=== PATIENT | male | born 1940 | race Caucasian/White ===

== ENCOUNTER 2022-10-18 09:47 | Emergency (ER) | payer OTHER, SELFPAY ==
[2022-10-18 09:56] VITALS: BP 137/80; PULSE 96; RESP 18; TEMP 36.8; O2SAT 94; BMI 28.1
--- NOTE | 2022-10-18 10:28 | XR_ITS ---
WS: [id number] Portable AP upright chest, 10/18/2022 Clinical Data: cough Comparison: None. Findings: There are bilateral patchy opacities in both lower lobes extending to the periphery of the lungs. These opacities probably represent acute pneumonia. The heart is enlarged. No nodules, masses or effusions are seen. The pulmonary vascularity is not increased. There is no pneumothorax. There is an azygos lobe of the wall. The aortic arch and descending thoracic aorta show tortuosity. There is a left shoulder arthroplasty. XR/XR chest 1V portable [id number] Impression: 1. Bilateral patchy lower lobe opacities most consistent with pneumonia. 2. Cardiomegaly and atherosclerosis.
--- NOTE | 2022-10-18 10:43 | W.ED.FEVER ---
HPI - Fever General: Chief Complaint: Fever Stated Complaint: Cough, Weakness, Fever Time Seen by Provider: 10/18/22 10:31 History of Present Illness: Patient is an 82-year-old male comes to the ED with upper respiratory symptoms. Symptoms started approximately a week and a half ago. Patient's had similar symptoms as well right around that time but she has since gotten better. He has had a fever, nasal congestion and drainage and a mostly dry cough. He states that his cough has gotten worse over the past couple days and is occasionally productive with thick green sputum. He had trouble sleeping last night due to coughing so much. Patient endorses feeling fatigue. He had 1 day where he had multiple episodes of diarrhea but that has completely resolved and he has not had any reoccurring episodes. Denies any chest pain, abdominal pain, nausea/vomiting, or bladder symptoms. Associated symptoms: Reports nasal congestion; Deny abdominal pain, flank pain, chills, chest pain, diarrhea, dysuria, headache(s), nausea or vomiting Review of Systems Const: Reports: fever(s) and fatigue; Denies: chills Eyes: Denies: change in vision or eye discomfort ENMT: Reports: nasal discharge and nasal congestion; Denies: throat pain or odynophagia Card: Denies: chest pain, palpitations, edema, swelling of feet/ankles, dyspnea on exertion or orthopnea Resp: Reports: productive cough; Denies: dyspnea or non-productive cough GI: Denies: abdominal pain, nausea, vomiting, diarrhea, constipation or hematochezia : Denies: flank pain, difficulty urinating, dysuria or hematuria Musc: Denies: neck pain, back pain or extremity swelling Skin/Breast: Denies: rash or new lesions Neuro: Denies: headache(s), numbness in extremities or weakness in extremities PFS ED PFSH: Medical History (Updated 10/19/22 @ 08:56 by CODIE Albright) No pertinent family history Surgical History (Updated 10/19/22 @ 08:56 by CODIE Albright) No pertinent past surgical history Physical Exam Const: COMMON NORMALS: patient oriented x3 and alert GENERAL APPEARANCE: cooperative and comfortable HENMT: COMMON NORMALS: normocephalic HEAD & SCALP: normocephalic MOUTH: Normal oral and palatal mucosa present THROAT: posterior oropharynx normal and uvula midline Neck/C-Spine: COMMON NORMALS: supple GENERAL: Yes normal visual inspection Resp: COMMON NORMALS: normal respiratory effort, No retractions, No use of accessory muscles and clear to auscultation bilaterally AUSCULTATION: clear to auscultation bilaterally and crackles Laterality: right (Base of the lung) Cardio: COMMON NORMALS: regular rate, regular rhythm, S1 normal heart sound present, S2 normal heart sound present, No gallops present (Cardio), No clicks present (Cardio), No murmurs present (Cardio) and Peripheral pulses 2+ throughout RATE: regular rate RHYTHM: regular rhythm HEART SOUNDS: S1 normal heart sound present and S2 normal heart sound present PERIPHERAL PULSES: Peripheral pulses 2+ throughout GI: COMMON NORMALS: Normal to inspection, nondistended, normoactive bowel sounds present, Soft to palpation, non-tender and no masses PALPATION: Yes Soft to palpation : COMMON NORMALS: Yes no CVA tenderness BLADDER/KIDNEY EXAM: Yes no CVA tenderness Back/Pelvis: COMMON NORMALS: no CVA tenderness Extremity: COMMON NORMALS: normal to inspection Neuro: COMMON NORMALS: patient oriented x3 SENSORIUM/ORIENTATION: Yes alert GAIT: Yes Normal gait present Skin: GENERAL SKIN EXAM: dry skin Course Vital Signs: Vital signs: Vital Signs Temperature 98.2 F 10/18/22 09:56 Pulse Rate 95 10/18/22 11:46 Respiratory Rate 15 10/18/22 11:46 Blood Pressure 164/83 10/18/22 11:46 Pulse Oximetry 94 10/18/22 11:46 Oxygen Delivery Me thod 10/18/22 11:46 MDM - Fever Medical Decision Making Patient is an 82-year-old male comes to the ED with upper respiratory symptoms. Symptoms started approximately a week and a half ago. Patient's had similar symptoms as well right around that time but she has since gotten better. He has had a fever, nasal congestion and drainage and a mostly dry cough. He states that his cough has gotten worse over the past couple days and is occasionally productive with thick green sputum. He had trouble sleeping last night due to coughing so much. Patient endorses feeling fatigue. He had 1 day where he had multiple episodes of diarrhea but that has completely resolved and he has not had any reoccurring episodes. Denies any chest pain, abdominal pain, nausea/vomiting, or bladder symptoms. Patient appears nontoxic and in no acute distress or pain. He has some mild crackles at the base of right lung. Vitals are stable. Influenza and COVID were negative. Chest x-ray shows bilateral patchy lower lobe opacities most consistent with pneumonia. Patient was given a dose of Rocephin and Decadron here in the ED. Patient was stable for discharge home and diagnosed with pneumonia. He sent home with a prescription for doxycycline, Tessalon Perles and albuterol inhaler. Told to follow-up with his PCP within the next 3 to 5 days for reevaluation. Return to ED precautions given. Patient understood and agreed with plan. Lab Data I reviewed the patient's lab results. Radiology Impressions Chest X-Ray 10/18/22 10:28 Impression: 1. Bilateral patchy lower lobe opacities most consistent with pneumonia. 2. Cardiomegaly and atherosclerosis. Laboratory Results Influenza Type A Ag negative (Negative) 10/18/22 10:47 Influenza Type B Ag negative (Negative) 10/18/22 10:47 SARS-CoV-2 Ag (Rapid) negative (Negative) 10/18/22 10:47 Discharge Plan Discharge Patient Disposition: Home Clinical Impression: Pneumonia Qualifiers: Pneumonia type: due to unspecified organism Laterality: bilateral Lung location: lower lobe of lung Qualified Code(s): J18.9 - Pneumonia, unspecified organism Condition: Stable Prescriptions: New doxycycline hyclate 100 mg capsule 100 mg PO BID 10 Days Qty: 20 0RF benzonatate 100 mg capsule 100 mg PO TID PRN (Reason: cough) Qty: 20 0RF albuterol sulfate 90 mcg/actuation HFA aerosol inhaler 2 inh inhalation Q6H PRN (Reason: shortness of breath or wheezing) Qty: 8.5 0RF Discharge Orders: Discharge ED (Routine); Ordered 10/18/22 Ordered By: Jose Cerna Referrals: Khadijah Daniels MD [Primary Care Provider] - Discharge Diet: Regular Discharge Activity: Increase activity as tolerated Patient Instructions: Pneumonia (ED) Activity Restrictions/Additional Instructions: Follow-up with medical provider as directed at your next scheduled appointment this coming October 23. Take medications as prescribed. Return to the ED immediately for reevaluation if worsening symptoms or no improvement after 2 to 3 days of being on antibiotic. Please read and understand discharge instructions. Thank you for choosing [facility] for your healthcare needs today. Please realize this is an emergency room and that we are providing you with a medical screening exam and this may not be complete and all inclusive of all the testing and or work up that you may need to determine your ailment or severity of your illness. It is very important that you follow up as instructed or that you return to the Emergency Department should you have concerns or if your condition changes or worsens in any way. Coding Level of Care Code ED Steward/Stewardess Tourist Class for Gena Sol
[2022-10-18 11:17] LABS: Influenza A by IFA negative (Negative); Influenza B by IFA negative (Negative)
[2022-10-18 11:18] LABS: SARS Covid-2 Antigen negative (Negative)
[2022-10-18 11:46] VITALS: BP 164/83; PULSE 95; RESP 15; O2SAT 94
[2022-10-18] MEDS: cefTRIAXone 1,000 MG in water for injection-sterile 2.1 ML 2.1 MG IM (11:47)
[2022-10-18] MEDS: dexamethasone 10 mg/mL INJ IM (11:47)
== END 2022-10-18 12:00 | disposition home or self-care (01) ==
PROVIDERS: Emergency Provider Physician Assistant; PCP Family Medicine
DX: J18.9 Pneumonia, unspecified organism (principal); I51.7 Cardiomegaly; I70.90 Unspecified atherosclerosis; Z20.822 Contact with and (suspected) exposure to COVID-19
CPT/HCPCS: 71045; 87426; 87804; 96372; 96374; 99284; J0696; J1100

== ENCOUNTER 2022-11-16 07:31 | Outpatient (CLI) | payer OTHER, SELFPAY ==
--- NOTE | 2022-11-16 07:46 | US_ITS ---
WS: [id number] RIGHT UPPER QUADRANT ULTRASOUND HISTORY: ELEVATED LIVER ENZYMES COMPARISON: None available. Liver: 12.4 cm in length. Normal size liver. Very poorly visualized liver due to body habitus. Large portions of the liver are obscured. Coarse echotexture. No bile duct dilatation. Portal Vein: Normal hepatopetal flow with monophasic waveform. Gallbladder: Poorly visualized gallbladder due to body habitus. No stones are identified. No wall thi ckening. CBD: 0.3 cm Pancreas: Obscured by bowel gas. Right kidney: 8.6 cm in length. RIGHT kidney is measuring small in size but I believe this is probabl y due to poor visualization of the kidney. There is no cortical atrophy or obstruction. Aorta and IVC: Atherosclerosis is mild. IVC not visualized. No ascites. US/US abdomen limited [id number] IMPRESSION: 1. Technically difficult and limited evaluation of the RIGHT upper quadrant. 2. No gallstones are identified but exam is limited. 3. Poorly visualized liver and pancreas.
== END 2022-11-16 07:32 | disposition home or self-care (01) ==
PROVIDERS: PCP Family Medicine; Visit Provider Family Medicine
DX: R79.89 Other specified abnormal findings of blood chemistry (principal)
CPT/HCPCS: 76705

== ENCOUNTER 2023-01-10 09:40 | Emergency (ER) | payer OTHER, SELFPAY ==
[2023-01-10 09:47] VITALS: BMI 27.3
[2023-01-10 09:50] VITALS: BP 126/59; PULSE 78; RESP 16; TEMP 36.7; O2SAT 97
--- NOTE | 2023-01-10 09:51 | XR_ITS ---
WS: [id number] Exam: XR hand RT min 3V* [id number] Date/Time of Exam: 01/10/2023 10:00 AM Reason For Exam: injury No acute fracture or dislocation. Degenerative changes in the IP and MP joints. Tiny metallic soft ti ssue foreign body in the thumb. 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 XR/XR hand RT min 3V* [id number] IMPRESSION: 1. No fracture or bony injury identified.
[2023-01-10 09:52] VITALS: BP 127/59; PULSE 65; RESP 16; O2SAT 97
--- NOTE | 2023-01-10 10:10 | ED_ITS ---
HPI - Extremity Problem General: Chief complaint: Extremity Injury, Upper Stated complaint: Right hand injury/ chainsaw accident Time Seen by Provider: 01/10/23 09:42 Source: patient Mode of arrival: ambulatory Limitations: no limitations History of Present Illness: 82-year-old male states that he was cutting limbs this morning around 830 with a chainsaw states that the limb came down not the chainsaw onto his right hand he has multiple lacerations to his digits over the right hand on the palmar aspect. Rates his pain currently 2 out of 10 he has full range of motion he is able to make a fist. Denies any other injuries no active bleeding. Associated symptoms: Deny chest pain, fever(s) or rash Review of Systems Const: Denies: fever(s) or chills ENMT: Denies: throat pain Card: Denies: chest pain Resp: Denies: dyspnea GI: Denies: abdominal pain, nausea, vomiting or diarrhea Musc: Reports: extremity pain; Denies: neck pain or back pain Skin/Breast: Denies: rash Neuro: Denies: headache(s) PFS ED PFSH: Medical History No pertinent family history Surgical History No pertinent past surgical history Social History (Updated 01/10/23 @ 10:10 by Nilo Shukla MD) Substance/Drug Use: never Physical Exam Const: COMMON NORMALS: no acute distress and patient oriented x3 HENMT: COMMON NORMALS: normocephalic and atraumatic HEAD & SCALP: normocephalic and atraumatic Eye: COMMON NORMALS: conjunctivae normal CONJUNCTIVA: Yes conjunctivae normal Neck/C-Spine: COMMON NORMALS: supple Chest: COMMONS NORMALS: normal inspection of the chest Resp: COMMON NORMALS: normal respiratory effort Cardio: COMMON NORMALS: regular rate and regular rhythm RATE: regular rate RHYTHM: regular rhythm GI: INSPECTION: Yes normal to inspection Extremity: NARRATIVE EXTREMITY EXAM: Multiple lacerations to his digits of the right hand on the palmar aspect no active bleeding no tendon injury sensation movements all intact. Neuro: COMMON NORMALS: patient oriented x3 Psych: COMMON NORMALS: mental status grossly normal Skin: COMMON NORMALS: no rashes or lesions noted GENERAL SKIN EXAM: no rashes or lesions noted Procedures Laceration Laceration 1: Site: upper extremity and other (Multiple different lacerations over the right hand 18 sutures placed in total) Side (If applicable): right Description: irregular Depth: simple, single layer Local Anesthetic: lidocaine 1% Amount of anesthesia used (mL): 15 Pre-repair: wound explored, irrigated extensively and extensive debridement Skin layer closed with: nylon Size (cm): 5-0 Number of sutures: 18 Course Vital Signs: Vital signs: Vital Signs Temperature 98.0 F 01/10/23 09:50 Pulse Rate 65 01/10/23 09:52 Respiratory Rate 16 01/10/23 09:52 Blood Pressure 127/59 01/10/23 09:52 Pulse Oximetry 97 01/10/23 09:52 Oxygen Delivery Me thod Room Air 01/10/23 09:52 MDM - Extremity (Nontraumatic) Medical Decision Making Patient presents here with multiple lacerations to the palmar aspect digits of his right hand that numb them cleaned them extensively did have to do extensive debridement did suture the lacerations 19 sutures were placed he had no signs of tendon damage we will place him on Augmentin for prophylaxis and have him follow-up with hand surgery he is to have suture removal in 10 days. Lab Data Radiology Impressions Hand X-Ray 01/10/23 09:51 IMPRESSION: 1. No fracture or bony injury identified. Imaging Data xr r hand: I personally reviewed and interpreted this imaging study as follows: My impression: no acute abnormality Discharge Plan Discharge Patient Disposition: Home Clinical Impression: Laceration of hand, right Prescriptions: New Augmentin 500-125 mg tablet 1 tab PO BID Qty: 14 0RF No Action benzonatate 100 mg capsule 100 mg PO TID PRN (Reason: cough) Qty: 20 0RF albuterol sulfate 90 mcg/actuation HFA aerosol inhaler 2 inh inhalation Q6H PRN (Reason: shortness of breath or wheezing) Qty: 8.5 0RF Discharge Orders: Discharge ED (Routine); Ordered 01/10/23 Ordered By: Nilo Shukla Referrals: Khadijah Daniels MD [Primary Care Provider] - Kailash Cerna DO [Physician] - 1-3 days Discharge Diet: Advance as tolerated Discharge Activity: Resume usual activity Patient Instructions: Care For Your Stitches (ED), Laceration (ED) Coding Level of Care Code ED Welding Machine Setter for Gena Sol
[2023-01-10] MEDS: tetanus-dipt-pertussis 0.5 mL SDV IM (10:25)
--- NOTE | 2023-01-10 10:54 | PC.PHAR ---
pts [facility] just came [place] only medication [facility] flomax 0.4mg qpm pt already had discharge orders/medications in before getting to verify medications with pt
[2023-01-10 11:53] VITALS: BP 127/59; PULSE 65; RESP 16; O2SAT 97
--- NOTE | 2023-01-10 14:32 | DCPLANNER ---
Addendum entered by Jackie Monteiro 01/23/23 10:15: Patient had a follow up appointment scheduled with ortho - patient did attend appointment. Addendum entered by Jackie Monteiro 01/10/23 15:41: Patient has a follow up appointment scheduled for Sunday, January 22, 2023 at 9:30 with Alexsander Valdez at ortho. Original Note: senior manager mergers & acquisitions had message to schedule a follow up appointment for patient with ortho. senior manager mergers & acquisitions sent patients information to the front office staff at ortho. Patients information will be printed and reviewed. Clinic will call patient with appointment information.
== END 2023-01-10 11:55 | disposition home or self-care (01) ==
PROVIDERS: Emergency Provider Emergency Medicine; PCP Family Medicine
DX: S61.411A Laceration without foreign body of right hand, initial encounter (principal); W29.3XXA Contact with powered garden and outdoor hand tools and machinery, initial encounter; Z23 Encounter for immunization
CPT/HCPCS: 12001; 73130; 90471; 90715; 99283

== ENCOUNTER → 2023-01-22 09:26 | Outpatient (BNVA) | payer OTHER, SELFPAY | PROVIDERS: PCP Family Medicine; Referring Provider Emergency Medicine; Visit Provider Nurse Practitioner Family | DX: S69.91XA Unspecified injury of right wrist, hand and finger(s), initial encounter (principal); W29.3XXA Contact with powered garden and outdoor hand tools and machinery, initial encounter | CPT/HCPCS: 99213 ==

== ENCOUNTER 2023-09-12 09:58 | Outpatient (CLI) | payer OTHER, SELFPAY ==
--- NOTE | 2023-09-12 10:06 | CT_ITS ---
WS: [id number] CT chest w con* [id number] HISTORY: SHORTNESS OF BREATH TECHNIQUE: Axial imaging performed through the thorax. Coronal and sagittal reformats are submitted. All CT scans at [facility] use at least one of these dose optimization techniques: automated exposure control; mA and/or kV adjustment per patient size (includes targeted exams where dose is mat ched to clinical indication); or iterative reconstruction. CONTRAST: Omnipaque 350; 100 mL IV. DLP: 420.64 mGy.cm COMPARISON: None available. Lungs and central airway: Mild volume loss. In the periphery of the upper and lower lung schmitt there is interstitial thickening. Interstitial prominence is more significant at the lung bases. There is also honeycombing identified at the lung bases, greatest on the RIGHT and a few areas of traction bro nchiectasis. No pulmonary mass or nodule. No dense consolidation. Pleura: Normal. No pleural effusion. Heart and pericardium: Mild cardiomegaly. Mediastinum and maru: 15 mm RIGHT hilar lymph node. No additional enlarged, indeterminate lymph nodes . Vessels: Mild atherosclerosis aorta. Normal sized pulmonary artery. Chest wall and lower neck: No soft tissue masses. Upper abdomen: Small hiatal hernia. Osseous structures: Mild anterior wedging of T7 by 10%. Additional mild anterior compression at T4. L EFT hip humeral head replacement. IMPRESSION: 1. No pneumonia. 2. 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 3. Indeterminate RIGHT hilar lymph node at 15 mm. Likely reactive. 4. Mild age-indeterminate compression fractures at T4 and T7.
[2023-09-12] MEDS: iohexol 350 mg/mL 500 mL Btl (per mL) IV (10:29)
== END 2023-09-12 09:59 | disposition home or self-care (01) ==
LOC: RAD 09:58
PROVIDERS: PCP Family Medicine; Visit Provider Family Medicine
DX: R06.02 Shortness of breath (principal); M48.54XA Collapsed vertebra, not elsewhere classified, thoracic region, initial encounter for fracture
CPT/HCPCS: 71260; Q9967

== ENCOUNTER 2023-10-12 10:13 | Emergency (ER) | payer OTHER, SELFPAY ==
[2023-10-12] VITALS (10 sets, daily range): BP systolic 145–166; BP diastolic 76–90; PULSE 90–105; RESP 16–26; TEMP 36.2–37.7; O2SAT 92–96
--- NOTE | 2023-10-12 10:31 | XRR_ITS ---
PROCEDURE INFORMATION: Exam: XR Chest Exam date and time: 10/12/2023 10:41 AM Age: 83 years old Clinical indication: Pain; Chest pressure; Additional info: Cough and resp symptoms TECHNIQUE: Imaging protocol: Radiologic exam of the chest. Views: 1 view. COMPARISON: CT chest w con* [id number] 09/12/2023 10:19 AM FINDINGS: Lungs: Mild interstitial prominence. Pleural spaces: Unremarkable. No pleural effusion. No pneumothorax. Heart/Mediastinum: Mild cardiomegaly. Bones/joints: Unremarkable. The scattered pulmonary infiltrates have resolved. Mild hypoventilatory changes at the lung bases. Left shoulder replacement. Other findings: No acute findings. XR/XR chest 1V portable [id number] IMPRESSION: 1. Hypoventilatory changes at the lung bases.
[2023-10-12 10:45] LABS: Basophils % 0.3 %; Hematocrit 39.1 % (37-53); Lymphocytes # 0.8 10^3/uL (0.8-4.8); Lymphocytes % 6.9 %; Mean Corpuscular HGB Conc 34.3 g/dL (30-55); Mean Corpuscular Hemoglobin 30.1 pg (27-33); Mean Corpuscular Volume 87.9 fl (82-101); Monocytes # 1.2 10^3/uL (0.2-0.9); Monocytes % 10.2 %; Neutrophils # 9.78 10^3/uL (1.8-7.7); Nucleated Red Blood Cells % 0 %; Platelet Count 166 10^3/cmm (157-399); Red Blood Count 4.45 10^6/uL (3.85-5.65); Red Cell Distribution Width 12.1 % (12.1-15.1); White Blood Count 11.91 10^3/uL (3.29-11.43)
[2023-10-12 11:02] LABS: Anion Gap 15.9 (5-19); Blood Urea Nitrogen 22 mg/dL (8-23); Calcium 8.6 mg/dL (8.5-10.5); Carbon Dioxide 25 mmol/L (22-29); Chloride 93 mmol/L (98-107); Creatinine Clr Calc Pharmacy 49.3844; Glucose 161 mg/dL (65-115); Osmolality Calculated 277 mOsm/kg (285-295); Potassium 3.9 mmol/L (3.5-5.1); Sodium 130 mmol/L (136-145)
--- NOTE | 2023-10-12 11:02 | ED_ITS ---
HPI - URI/Sore Throat 2 General: Chief Complaint: Upper Respiratory Infection Stated Complaint: cough, fever, n/v, chest pain Time Seen by Provider: 10/12/23 10:29 History of Present Illness: The patient presents with left-sided chest pain and a severe cough. They report experiencing fevers, but the exact temperature is unknown due to the unavailability of a thermometer. The patient denies experiencing chills or shakes. They mention a previous episode of shortness of breath, which has since resolved. No sinus drainage, headache, body aches, or joint pain are reported. The patient has a scheduled appointment for the evaluation of lung scarring. They underwent an MRI of the chest last week. The patient mentions sliding out of bed onto the floor the previous night but denies any fall or injury. Review of Systems 2 General: Reports: 10 or more systems reviewed and unremarkable except in HPI and below Card: Denies: palpitations or edema Resp: Denies: dyspnea Skin/Breast: Denies: rash PFS ED 2 PFSH: Medical History No pertinent family history Surgical History No pertinent past surgical history Social History Substance/Drug Use: never Physical Exam 2 Const: COMMON NORMALS: no acute distress, patient oriented x3, healthy appearing, alert and well nourished HENMT: COMMON NORMALS: normocephalic HEAD & SCALP: normocephalic Eye: COMMON NORMALS: EOMs intact bilaterally Neck/C-Spine: COMMON NORMALS: full ROM and supple Resp: COMMON NORMALS: normal respiratory effort, No retractions and clear to auscultation bilaterally AUSCULTATION: clear to auscultation bilaterally Cardio: COMMON NORMALS: regular rhythm, No gallops present (Cardio) and No murmurs present (Cardio) RATE: tachycardic RHYTHM: regular rhythm GI: COMMON NORMALS: Soft to palpation and non-tender PALPATION: Yes Soft to palpation Extremity: GENERAL: Yes normal exam except as noted Neuro: COMMON NORMALS: patient oriented x3 SENSORIUM/ORIENTATION: Yes alert Skin: COMMON NORMALS: no rashes or lesions noted GENERAL SKIN EXAM: no rashes or lesions noted Course 2 Vital Signs: Vital signs: Vital Signs Temperature 97.1 F L 10/12/23 10:59 Pulse Rate 101 H 10/12/23 14:30 Respiratory Rate 24 H 10/12/23 11:59 Blood Pressure 159/80 10/12/23 11:59 Pulse Oximetry 96 10/12/23 14:30 Oxygen Delivery Me thod Room Air 10/12/23 11:59 MDM - URI/Sore Throat Medical Decision Making 83-year-old male presented to the emergency department for evaluation of left- sided chest pain, cough, fever, and general malaise. Based on patient's history, physical exam, and workup in the emergency department it would appear that he has an upper respiratory infection and dehydration. Patient also has elevated serum glucose. Discussed with the patient his treatment options including hospital admission. Patient denied hospital admission at this time. Encourage patient to follow-up with his primary care physician for further evaluation of hyperglycemia. Patient's tachycardia resolved with gentle hydration. Encourage patient to continue with oral hydration. Differential Diagnosis Likely upper respiratory infection, sinusitis, viral infection, influenza and pharyngitis Lab Data 10/12/23 10:37 10/12/23 10:37 Radiology Impressions Chest X-Ray 10/12/23 10:31 IMPRESSION: 1. Hypoventilatory changes at the lung bases. Laboratory Results WBC 11.91 10^3/uL (3.29-11.43) H 10/12/23 10:37 RBC 4.45 10^6/uL (3.85-5.65) 10/12/23 10:37 Hgb 13.40 g/dL (11.27-16.99) 10/12/23 10:37 Hct 39.1 % (37-53) 10/12/23 10:37 MCV 87.9 fl (82-101) 10/12/23 10:37 MCH 30.1 pg (27-33) 10/12/23 10:37 MCHC 34.3 g/dL (30-55) 10/12/23 10:37 RDW 12.1 % (12.1-15.1) 10/12/23 10:37 Plt Count 166 10^3/cmm (157-399) 10/12/23 10:37 MPV 10.0 fL (7.4-10.4) 10/12/23 10:37 Neut % (Auto) 82.0 % 10/12/23 10:37 Lymph % (Auto) 6.9 % 10/12/23 10:37 [place] % (Auto) 10.2 % 10/12/23 10:37 Eos % (Auto) 0.0 % 10/12/23 10:37 Baso % (Auto) 0.3 % 10/12/23 10:37 Neut # (Auto) 9.78 10^3/uL (1.8-7.7) H 10/12/23 10:37 Lymph # (Auto) 0.8 10^3/uL (0.8-4.8) 10/12/23 10:37 [place] # (Auto) 1.2 10^3/uL (0.2-0.9) H 10/12/23 10:37 Eos # (Auto) 0.0 10^3/uL (0.0-0.8) 10/12/23 10:37 Baso # (Auto) 0.0 10^3/uL (0.0-0.1) 10/12/23 10:37 Nucleated RBC % (auto) 0 % 10/12/23 10:37 Nucleated RBCs # 0.0 /100WBC 10/12/23 10:37 Sodium 130 mmol/L (136-145) L 10/12/23 10:37 Potassium 3.9 mmol/L (3.5-5.1) 10/12/23 10:37 Chloride 93 mmol/L (98-107) L 10/12/23 10:37 Carbon Dioxide 25 mmol/L (22-29) 10/12/23 10:37 Anion Gap 15.9 (5-19) 10/12/23 10:37 BUN 22 mg/dL (8-23) 10/12/23 10:37 Creatinine 1.2 mg/dL (0.7-1.2) 10/12/23 10:37 GFR Calculation Not Reportable 10/12/23 10:37 Glucose 161 mg/dL (65-115) H 10/12/23 10:37 POC Glucose 142 mg/dL (70-110) H 10/12/23 12:31 Calculated Osmolality 277 mOsm/kg (285-295) L 10/12/23 10:37 Lactic Acid 2.2 mmol/L (0.5-2.2) 10/12/23 10:37 Lactic Acid (Sepsis) 1.9 mmol/L (0.5-2.2) 10/12/23 14:02 Calcium 8.6 mg/dL (8.5-10.5) 10/12/23 10:37 Influenza Type A Ag negative (Negative) 10/12/23 10:48 Influenza Type B Ag negative (Negative) 10/12/23 10:48 SARS-CoV-2 Ag (Rapid) negative (Negative) 10/12/23 11:08 Imaging Data CXR: Radiologist's impression: No acute findings All radiology interpretation(s) finalized by discharge EKG Data EKG 1: EKG interpretation date: 10/12/23 EKG interpretation time: 10:24 Interpretation: Sinus tachycardia rate 101, NM interval 165, QRS 94, QTc 361, left axis deviation. No EKG for comparison Discharge Plan Discharge Patient Disposition: Home Clinical Impression: Acute dehydration Upper respiratory infection Qualifiers: URI type: unspecified viral URI Qualified Code(s): J06.9 - Acute upper respiratory infection, unspecified Condition: Stable Prescriptions: No Action benzonatate 100 mg capsule 100 mg PO TID PRN (Reason: cough) Qty: 20 0RF albuterol sulfate 90 mcg/actuation HFA aerosol inhaler 2 inh inhalation Q6H PRN (Reason: shortness of breath or wheezing) Qty: 8.5 0RF Augmentin 500-125 mg tablet 1 tab PO BID Qty: 14 0RF Discharge Orders: Discharge ED (Routine); Ordered 10/12/23 Ordered By: Luca Law Referrals: Khadijah Daniels MD [Primary Care Provider] - (Follow-up with primary care physician in 1 to 2 weeks. Patient has elevated glucose and dehydration. Additionally, he has what appears to be an upper respiratory infection.) Discharge Diet: Regular Discharge Activity: Resume usual activity Patient Instructions: Dehydration (ED), Opioid Safety, Pain Management Coding Level of Care Code ED Data Compiler for Gena Sol
[2023-10-12] MEDS: ipratropium-albuterol 3 mL Neb INHALATION (11:10)
[2023-10-12 11:27] LABS: Lactic Sepsis W/Reflex 2.2 mmol/L (0.5-2.2)
[2023-10-12] MEDS: sodium chloride 0.9% 500 ML 999 ML IV ×3 (11:29→14:25)
[2023-10-12 11:37] LABS: SARS Covid-2 Antigen negative (Negative)
[2023-10-12 11:37] LABS: Influenza A by IFA negative (Negative); Influenza B by IFA negative (Negative)
[2023-10-12 12:33] LABS: Glucose Point of Care 142 mg/dL (70-110)
[2023-10-12 12:55] LABS: Reflex Lactate Order REFLEX LACTIC ORDERD
[2023-10-12] MEDS: ondansetron 2 mg/ML SDV 2 mL 4 MG IVP (13:50)
[2023-10-12 14:30] LABS: Lactic Acid level (Lactate) 1.9 mmol/L (0.5-2.2)
--- NOTE | 2023-10-12 16:39 | ECG_ITS ---
[facility] Test Date: 2023-10-12 Pat Name: Carroll Dunn Department: Room: Gender: Male [employer]ell[employer] Worker: : 1940 Requested By: Luca Colon Order Number: [id number] [place] MD: Sedrick Wolfe M.D. Measurements Intervals [place] Rate: 101 P: 49 [place]: 165 QRS: -21 QRSD: 94 T: 51 QT: 303 QTc: 394 Interpretive Statements SINUS TACHYCARDIA BORDERLINE LEFT AXIS DEVIATION [QRS AXIS < -20] No previous ECG available for comparison Electronically Signed On 10-14-2023 9:33:03 INVENTORY CONTROL ASSISTANT by Sedrick Wolfe M.D. [email or web address]
== END 2023-10-12 14:53 | disposition home or self-care (01) ==
PROVIDERS: Emergency Provider General Practice; PCP Family Medicine
DX: J06.9 Acute upper respiratory infection, unspecified (principal); E86.0 Dehydration; Z11.52 Encounter for screening for COVID-19
CPT/HCPCS: 36416; 71045; 80048; 82962; 83605; 85025; 87426; 87804; 93005; 94640; 96361; 96374; 99285; J2405; J7040